=== PATIENT | male | born 1965 | race Caucasian/White ===

== ENCOUNTER 2022-09-28 11:51 | Emergency (ER) | payer MEDICAID | END 2022-09-28 12:55 | disposition home or self-care (01) | LOC: VM.ED 11:51 | DX: S09.21XA Traumatic rupture of right ear drum, initial encounter (principal); E11.9 Type 2 diabetes mellitus without complications; Z72.0 Tobacco use; Z79.84 Long term (current) use of oral hypoglycemic drugs; Z79.899 Other long term (current) drug therapy; X58.XXXA Exposure to other specified factors, initial encounter | CPT/HCPCS: 99283 ==

== ENCOUNTER 2025-01-11 07:55 | Day surgery (SDC) | payer MEDICAID ==
[~2025-01-11 07:55] MED LIST: Lactated Ringers 1,000 ML IV SCH
[2025-01-11] MEDS: Lactated Ringers 1,000 ML IV SCH (08:17)
[2025-01-11] MEDS ORDERED: Propofol 200 MG/20 ML SDV ONE ×4 (08:23→10:31)
[2025-01-11] MEDS ORDERED: fentaNYL 100 MCG/2 ML SDV ONE (08:23)
== END 2025-01-11 11:29 | disposition home or self-care (01) ==
LOC: VM.SDS 07:55
PROVIDERS: ATTEND Family Medicine
DX: Z12.11 Encounter for screening for malignant neoplasm of colon (principal); D12.0 Benign neoplasm of cecum; D12.3 Benign neoplasm of transverse colon; D12.2 Benign neoplasm of ascending colon; D12.4 Benign neoplasm of descending colon; D12.8 Benign neoplasm of rectum; D12.5 Benign neoplasm of sigmoid colon; K63.5 Polyp of colon; K57.30 Diverticulosis of large intestine without perforation or abscess without bleeding; K64.9 Unspecified hemorrhoids; E11.9 Type 2 diabetes mellitus without complications; E78.2 Mixed hyperlipidemia; Z79.4 Long term (current) use of insulin; Z79.82 Long term (current) use of aspirin; Z79.84 Long term (current) use of oral hypoglycemic drugs; Z79.899 Other long term (current) drug therapy
CPT/HCPCS: 00811; 45380; 45385; 82947; J2704; J3010; J7120